=== PATIENT | male | born 1970 | race Two or more races ===

== ENCOUNTER 2022-12-29 13:41 | Outpatient (CLI) | payer BC, SELFPAY ==
--- NOTE | 2022-12-29 | ECHO_ITS ---
Patient Info Name: Margarito Moreno Age: 52 years : 1970 Gender: Male Ht: 67 in Wt: 178 lbs BSA: 1.97 m2 HR: 71 bpm BP: 158 / 99 mmHg Heart Rhythm: Sinus Rhythm Technical Quality: Good Exam Date: 12/29/2022 1:58 PM Exam Location: [facility] Pulmonary Patient Status: Outpatient Admit Date: 12/29/2022 Staff Ordering Physician: Louise, Rachel VELAZCO Temporary Administrative Assistant: Janee Bhakta RDCS Attending Provider: LouiseRachel NP Exam Type: CA echo doppler color flow Study Info Indications R00.2 - Palpitations I10 - Essential (primary) hypertension Complete two-dimensional, color flow and Doppler transthoracic echocardiogram is performed. Summary 1. Complete two-dimensional, color flow and Doppler transthoracic echocardiogram is performed. 2. Unremarkable 2D/Doppler echocardiogram. Left Ventricle Left ventricular chamber dimension is normal. Left ventricular systolic function is normal, estimated at 55-60%. The left ventricular diastolic function is normal. Right Ventricle Right ventricular chamber dimension is normal. Left Atria Left atrial chamber dimension is normal. Right Atria Right atrial chamber dimension is normal. Aortic Valve The aortic valve is normal. Pulmonic Valve The pulmonic valve is normal. Mitral Valve The mitral valve has normal leaflets. Tricuspid Valve The tricuspid valve leaflets are normal. Pericardium/Pleural The pericardium appears normal. Aorta The aortic root size at the sinus of Valsalva is normal. Left Ventricular Outflow Tract Name Value Normal LVOT 2D LVOT Diameter 2.0 cm LVOT Doppler LVOT Peak Gradient 7 mmHg LVOT Mean Gradient 3 mmHg LVOT VTI 24 cm LVOT VTI/AV VTI Ratio 0.8 LVOT Stroke Volume 77 ml LVOT CO 5.3 l/min LVOT CI 2.7 l/min/m2 Pulmonic Valve Name Value Normal RVOT Doppler RVOT Peak Gradient 2 mmHg PV Doppler PV Peak Gradient 5 mmHg Mitral Valve Name Value Normal MV Doppler MV Decel [place] 479 cm/s2 MV PHT 47 ms MV Area (PHT) 4.7 cm2 4.0-5.0 MV Diastolic Function MV E Peak Velocity 78 cm/s MV A Peak Velocity 82 cm/s MV E/A 0.9 MV Decel John
== END 2022-12-29 13:42 | disposition home or self-care (01) ==
PROVIDERS: Visit Provider Registered Nurse
DX: R00.2 Palpitations (principal); I10 Essential (primary) hypertension
CPT/HCPCS: 93306

== ENCOUNTER 2023-06-01 09:07 | Outpatient (CLI) | payer BC, SELFPAY ==
--- NOTE | 2023-06-01 09:12 | EST_ITS ---
Patient Info Name: Margarito Moreno Age: 53 years : 1970 Gender: Male Ht: 67 in Wt: 178 lbs BSA: 1.97 m2 HR: 71 bpm BP: 158 / 89 mmHg Heart Rhythm: Sinus Rhythm Exam Date: 06/01/2023 9:36 AM Exam Location: Echo Lab Patient Status: Outpatient Admit Date: 06/01/2023 Staff Ordering Physician: Markus Pulliam DO Attending Provider: Markus Pulliam DO Exercise Technologist: Krystyna Barton CT Exercise Physician: Markus Pulliam DO Exam Type: CA stress test treadmill Study Info Indications R07.89 - Other chest pain A treadmill exercise stress test was performed. Summary 1. 1. Negative Flavio exercise stress test for ischemic ST changes by ECG criteria. 2. 2. Good functional capacity, achieving 12 METs of workload. 3. 3. Baseline hypertension with hypertensive response to exercise. 4. 4. Appropriate HR response to exercise. 5. 5. Appropriate HR recovery at 1 minute post exercise. 6. 6. No imaging with stress testing. 7. 7. Patient informed of the above results. Protocol: Flavio Stress ECG Details Stage: REST Duration (min): 5 min : 7 sec Speed (mph): 0.0 Grade (%): 0 HR (bpm): 77 SBP (mmHg): 158 DBP (mmHg): 89 METS: --- Stage: REST Duration (min): 10 min : 12 sec Speed (mph): 0.0 Grade (%): 0 HR (bpm): 86 SBP (mmHg): 158 DBP (mmHg): 89 METS: --- Stage: STAGE 1 Duration (min): 1 min : 0 sec Speed (mph): 1.7 Grade (%): 10 HR (bpm): 108 SBP (mmHg): 158 DBP (mmHg): 89 METS: --- Stage: STAGE 1 Duration (min): 2 min : 0 sec Speed (mph): 1.7 Grade (%): 10 HR (bpm): 115 SBP (mmHg): 158 DBP (mmHg): 89 METS: --- Stage: STAGE 1 Duration (min): 3 min : 0 sec Speed (mph): 1.7 Grade (%): 10 HR (bpm): 115 SBP (mmHg): 188 DBP (mmHg): 93 METS: --- Stage: STAGE 2 Duration (min): 1 min : 0 sec Speed (mph): 2.5 Grade (%): 12 HR (bpm): 124 SBP (mmHg): 188 DBP (mmHg): 93 METS: --- Stage: STAGE 2 Duration (min): 2 min : 0 sec Speed (mph): 2.5 Grade (%): 12 HR (bpm): 127 SBP (mmHg): 191 DBP (mmHg): 97 METS: --- Stage: STAGE 2 Duration (min): 3 min : 0 sec Speed (mph): 2.5 Grade (%): 12 HR (bpm): 127 SBP (mmHg): 191 DBP (mmHg): 97 METS: --- Stage: STAGE 3 Duration (min): 1 min : 0 sec Speed (mph): 3.4 Grade (%): 14 HR (bpm): 132 SBP (mmHg): 207 DBP (mmHg): 96 METS: --- Stage: STAGE 3 Duration (min): 2 min : 0 sec Speed (mph): 3.4 Grade (%): 14 HR (bpm): 138 SBP (mmHg): 207 DBP (mmHg): 96 METS: --- Stage: STAGE 3 Duration (min): 3 min : 0 sec Speed (mph): 3.4 Grade (%): 14 HR (bpm): 139 SBP (mmHg): 208 DBP (mmHg): 100 METS: --- Stage: STAGE 4 Duration (min): 1 min : 0 sec Speed (mph): 4.2 Grade (%): 16 HR (bpm): 150 SBP (mmHg): 208 DBP (mmHg): 100 METS: --- Stage: STAGE 4 Duration (min): 1 min : 0 sec Speed (mph): 4.2 Grade (%): 16
== END 2023-06-01 09:08 | disposition home or self-care (01) ==
LOC: ANHCARD 09:08
PROVIDERS: PCP Registered Nurse; Visit Provider Internal Medicine Cardiovascular Disease
DX: R07.9 Chest pain, unspecified (principal)
CPT/HCPCS: 93017

== ENCOUNTER 2024-01-22 13:32 | Outpatient (CLI) | payer BC, SELFPAY ==
--- NOTE | 2024-01-25 16:17 | WPDHOLTEREM ---
Holter/Event Monitor Holter/Event Monitor Date of procedure: 01/22/24 Holter/Event Procedure: 48 Hr Holter Monitor Indications: Lightheadedness/syncope Conclusion: 1. 48 hour holter monitor on 01/22/24. 2. Underlying rhythm is sinus rhythm. HR range 47-106 bpm; average 68 bpm. HR at 47 bpm was at 05:44. 3. There are 25 premature supraventricular complexes and 1 supraventricular couplet. No supraventricular tachycardia. 4. No premature ventricular complexes. No ventricular tachycardia. 5. No sinoatrial or atrioventricular blocks. No significant pauses greater than 2 seconds. 6. No symptoms available for correlation.
== END 2024-01-22 13:33 | disposition home or self-care (01) ==
LOC: ANHCARD 13:33
PROVIDERS: PCP Registered Nurse; Visit Provider Registered Nurse
DX: R42 Dizziness and giddiness (principal)
CPT/HCPCS: 93225; 93226

== ENCOUNTER 2024-05-16 16:02 | Outpatient (CLI) | payer BC, SELFPAY ==
[2024-05-16 16:27] LABS: Basophils Percent Auto 0.5 % (0.2-1.2); Eosinophils Absolute Auto 0.1 K/mm3 (0-0.3); Eosinophils Percent Auto 2.3 % (0-4.4); Hematocrit 42.6 % (42.0-52.0); Immature Granulocyte Absolute 0.01 K/mm3 (0.00-0.031); Immature Granulocyte Percent A 0.2 % (0-0.5); Lymphocytes Percent Auto 42.8 % (18.3-44.2); Mean Corpuscular HGB Conc 32.9 g/dl (32-36); Mean Corpuscular Hemoglobin 25.9 pg (26-34); Mean Corpuscular Volume 78.7 fl (80-100); Mean Platelet Volume 9.9 fl (7.4-10.4); Monocytes Absolute Auto 0.5 K/mm3 (0.1-0.6); Monocytes Percent Auto 7.4 % (2.6-8.5); Neutrophils Absolute Auto 2.9 K/mm3 (1.3-6.7); Neutrophils Percent Auto 46.8 % (45.5-73.1); Platelet Count Result 312 k/mm3 (150-375); Red Blood Count 5.41 M/mm3 (4.6-6.20); Red Cell Distribution Width 13.6 % (11.5-14.5); White Blood Count 6.1 K/mm3 (4.5-10.0)
--- OUTSIDE RECORDS SUMMARY | 2024-05-16 16:37 | XMS_ITS | Encounter Summary ---
Author Organization [facility] Address [address] [place] [address]. [place], [place] [address] [place] [address] Care Team Providers Care Boiler Washer Name Role Phone LouiseRachel luong Martínez PENA Primary Care Provider [phone] Encounter Details Date Type Department Care Team (Late Contact Info) Description 03/06/2023 [employer] Message Enc [facility] Multispecialty Care - [facility] [address] [facility], [address] [place] [address] Maddie Fierro NP [address] [facility] [address] [place] [address] Appointment Social History Tobacco Use Types Packs/Day Years Used Date Smoking Tobacco: Never Smokeless Tobacco: Former Alcohol Use Standard Drinks/Week Comments Not Currently 0 (1 standard drink = 0.6 oz pur e alcohol) wine, seldom; socially AUDIT-C Answer Date Recorded Frequency of Alcohol Consumption 4 or more times a week 08/03/2018 Average Number of Drinks 1 or 2 019 Frequency of Binge Drinking Never 07/19 PHQ-2 Answer Date Recorded Patient Health Questionnaire-2 Score 0 06/04/2022 Sex and Gender Information Value Date Recorded Sex Assigned at Not on file 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 Gender Identity Not on file Sexual Orientation Not on file documented as of this encounter Plan of Treatment Upcoming Encounters Date Type Department Care Team (Late st Contact Info) Description 06/30/2024 1:00 PM CDT Office Visit [facility] Multispecialty Care - [facility] [address] [facility] [place] [address] Moiz Lyles MD [address] [facility] [address] [place] [address] documented as of this encounter Visit Diagnoses Not on filedocumented in this encounter Additional Health Concerns Assessment Noted Time PHQ-9 Depression Total Score: 11 022 11:33 AM CDT documented as of this encounter Care Teams Boiler Washer Relationship Specialty Start Date End Date Rachel Gil APNP [address] [place] [address] PCP - General NURSE PRACTITIONER 08/03/18 documented as of this encounter
--- OUTSIDE RECORDS SUMMARY | 2024-05-16 16:37 | XMS_ITS | Clinical Summary ---
Author Organization [facility] [address] Address [address] [place] [address] Care Team Providers Care Developer Designer Name Role Phone Rachel Gil Primary Care Provider + Allergies Active Allergy Reactions Criticality Noted Date Comments Lisinopril Angioedema High 04/11/2019 Medications amLODIPine (NORVASC) 10 mg tablet 02/18/2021 Active omeprazole (PriLOSEC) 40 mg capsule TAKE 1 CAPSULE(40 MG) BY MOUTH DAILY 04/23/2020 Active Active Problems No known active problems Surgical History Surgery Date Site/Laterality Comments KNEE SURGERY Medical History Medical History Date Comments Diverticulitis Elevated liver enzymes Hypertension GERD (gastroesophageal reflux disease) Chest tightness Sleep apnea Family History Medical History Relation Name Comments Hypertension Brother 1 Fainting Father Hypotension Father Breast cancer Paternal Grandmother Relation Name Status Comments Brother 1 Alive Brother 2 Alive Father Alive Mother Alive Paternal Grandmother Sister Alive Social History Tobacco Use Types Packs/Day Years Used Date Smoking Tobacco: Never Smokeless Tobacco: Current Chew Sex and Gender Information Value Date Recorded Sex Assigned at Not on file 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 Gender Identity Not on file Sexual Orientation Not on file Obstetrics History Last Filed Vital Signs Vital Sign Reading Time Taken Comments Blood Pressure 138/90 01/23/2022 3:19 PM CDT Pulse 68 01/23/2022 3:19 PM CDT Temperature - - Respiratory Rate - - Oxygen Saturation 96% 01/23/2022 3:19 PM CDT Inhaled Oxygen Concentration - - Weight 87.1 kg (192 lb) 01/23/2022 3:19 PM CDT Height 170.2 cm (5' 7 ) 01/23/2022 3:19 PM CDT Body Mass Index 30.07 01/23/2022 3:19 PM CDT Plan of Treatment Health Maintenance Due Date Last Done Comments Colon Cancer Screening-Colonoscopy 1970 Depression Screening 1970 Hepatitis C Screening 1970 Prostate Cancer Screening-PSA 1970 Hepatitis B Screening 02/02/1988 Regular Well Visit/Exam 18-64 02/02/1988 Zoster Vaccine (1 of 2) 02/02/2020 Covid-19 Vaccine (3 - season) 2023 07/10/2020, 06/12/2020 Influenza Vaccine (#1) 2023 9, 02/09/2015, 04/05/2014, Additional history exists DTaP/Tdap/Td Vaccine (3 - Td or Tdap) 01/24/2029 01/24/2019, 06/29/2008 Pneumococcal vaccine <65 Aged Out No longer eligible based on patient's age to complete this topic Insurance [employer] CHOICE OOS Care Teams Developer Designer Relationship Specialty Start Date End Date Rachel Gil PA [address] [place] [address] PCP - General Nurse Practitioner 11/13/20
--- OUTSIDE RECORDS SUMMARY | 2024-05-16 16:37 | XMS_ITS | Encounter Summary ---
Author Organization [facility] Address [address] [place] [address]. [place], [place] [address] [place] [address] Care Team Providers Care Charger Tester Name Role Phone Rachel Gil BECKY Primary Care Provider [phone] Encounter Details Date Type Department Care Team (Late Contact Info) Description 07/10/2023 Seeo Message Enc [address], [address] [place] [address] [facility] Provider Medication Social History Tobacco Use Types Packs/Day Years [...] Answer Date Recorded Patient Health Questionnaire-2 Score 2 06/25/2023 Sex and Gender Information Value Date Recorded Sex Assigned at Not on file 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 Gender Identity Not on file Sexual Orientation Not on file documented as of this encounter Plan of Treatment Upcoming Encounters Date Type Department Care Team (Late Contact Info) Description 06/30/2024 1:00 PM CDT Office Visit [address] [place] [address] Moiz Lyles MD [address] [place] [address] documented as of this encounter Visit Diagnoses Not on filedocumented in this encounter Additional Health Concerns Assessment Noted Time PHQ-9 Depression Total Score: 11 12/11/ 022 11:33 AM CDT documented as of this encounter Care Teams Charger Tester Relationship Specialty Start Date End Date Rachel Gil APNP [facility] [place] [address] PCP - General NURSE PRACTITIONER 08/03/18 documented as of this encounter
--- OUTSIDE RECORDS SUMMARY | 2024-05-16 16:37 | XMS_ITS | Referral Summary ---
Author Organization [facility] [address] Address [address] [place] [address] Care Team Providers Care Manager Student Services Name Role Phone Rachel Gil Primary Care Provider + Allergies Active Allergy Reactions Criticality Noted Date Comments Lisinopril Angioedema High 04/11/2019 Medications amLODIPine (NORVASC) 10 mg tablet 02/18/2021 Active omeprazole (PriLOSEC) 40 mg capsule TAKE 1 CAPSULE(40 MG) BY MOUTH DAILY 04/23/2020 Active Active Problems No known active problems Social History Tobacco Use Types Packs/Day Years Used Date Smoking Tobacco: Never Smokeless Tobacco: Current Chew Sex and Gender Information Value Date Recorded Sex Assigned at Not on file 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
--- OUTSIDE RECORDS SUMMARY | 2024-05-16 16:37 | XMS_ITS | CONTINUITY OF CARE DOCUMENT ---
Author Name albert price Address Unknown Organization [facility] Address [address] [facility] [facility] [address] [place] [address] Phone [phone] Care Team Providers Care Admin Prog Coord Name Role Phone Pepito STERLING, Eliceo Unavailable MARIANO STERLING, NATALIO Unavailable [phone] CELIO STERLING, ALEXEY Unavailable [phone] INSURANCE PROVIDERS Payer name Policy type / Coverage type Chester red libertarian ID [facility] [id number]
--- OUTSIDE RECORDS SUMMARY | 2024-05-16 16:37 | XMS_ITS | Continuity of Care Document ---
Author Organization [facility] Address [address] [place] [address] [address] [place] [address] Phone Care Team Providers Care Fiber Optics Engineer Name Role Phone Ariel Sherwood Unavailable Unavailable Advance Directives Directive Yes / No Effective Date File Name No Information Encounters Encounter Description Practice Location Reason(s) For Visit Diagnoses Date Provider Providers Copied on Encounter [facility], [address] [place] [address] [address], [place], [place], [id number], [place] tel:[phone] [facility] [place] No Information Mar-0 5-200 1 [address] Edward. [address] [facility] [place] , [address], [place], [address], [place]. tel:[phone] Family History Family Member Type Diagnosis Age At Onset No Information Payers Payer name Insurance type Covered democrat ID Authoriza tion(s) No Information Social History Type Description Quantity Date Captured Comments Sex Male Smoking Status No Information Chief Complaint And Reason For Visit No Information Reason For Referral Reason For Referral No Information History Of Present Illness Encounter Date Complaint History Of Prese nt Illness No Information Functional Status Date Functional Assessmen t No Information Instructions Date Instruction Additional Infor mation No Information Assessments Type Assessment Date No Information Patient Care Teams Name Effective Dates (start - stop) Status Members No Information
--- OUTSIDE RECORDS SUMMARY | 2024-05-16 16:37 | XMS_ITS | Clinical Summary ---
Author Organization [facility] Address [address] [place] [address]. [place], [place] [address] [place] [address] Care Team Providers Care Plasterer Maintenance Name Role Phone Rachel Gil Primary Care Provider Allergies Active Allergy Reactions Criticality Noted Date Comments Lisinopril Angioedema 04/11/2019 Medications amLODIPine (NORVASC) 10 MG tabletIndications :Essential hypertension Take 1 tablet (10 mg total) by mouth daily. 90 tablet 3 07/23/2023 Active BLOOD PRESSURE CUFF, DME,Indications:E ssential hypertension 1 Device by Does not apply route daily. 1 Device 07/23/2023 Active omeprazole (PRILOSEC) 20 MG capsuleIndication s:Gastroesophagea l reflux disease, unspecified whether esophagitis present TAKE 1 CAPSULE(20 MG) BY MOUTH DAILY 30 capsule 3 12/22/2023 Active Active Problems Problem Noted Date Diagnosed Date OXANA (obstructive sleep apnea) 12/16/2021 BMI 29.0-29.9,adult 11/02/2020 Essential hypertension 08/03/2018 Gastroesophageal reflux disease without esophagi tis 08/03/2018 Elevated liver enzymes 08/03/2018 Fatty liver 08/03/2018 Encounters Date Type Department Care Team Description 03/10/2024 8:40 AM RETAIL DEPARTMENT RESET Allied Health/[facility]urse [facility] [address] [address] Rachel Gil APNP Allied Health Visit 03/10/2024 Travel from Last 3 Months Immunizations Name Administration Dates Next Due Dtap 06/29/2008 Fluzone (IIV3, Trivalent, 0. 5 ML Prefilled Syringe) 03/10/2024 Fluzone 6 Months+ Quad (0.5 mL Prefilled Syringe) 01/14/2023,01/24/2019 Fluzone High Dose - >Age 65 (Prefilled Syringe) 01/30/2011 Influenza Adult (Generic) 01/24/2019,02/09/2015, 04/05/2014 MODERNA COVID-19 (12+) MRNA, LNP-S, PF, 100 MCG/ 0.5 ML DOSE 07/10/2020,06/12/2020 Pneumococcal (Prevnar 20) 03/10/2024 Shingrix 07/07/2023 Tdap (Historical Only-select from magnify glass) 01/24/2019 Family History Medical History Relation Comments Hypertension Brother Breast Cancer Maternal Grandmother Breast Cancer Paternal Grandmother Cancer Paternal Uncle prostate Relation Status Comments Brother Maternal Grandmother Paternal Grandmother Paternal Uncle Social History Tobacco Use Types Packs/Day Years [...] on file Legal Sex Male 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 RESET Gender Identity Not on file Sexual Orientation Not on file Last Filed Vital Signs Vital Sign Reading Time Taken Comments Blood Pressure 126/74 12/24/2023 8:58 AM CDT Pulse 80 12/24/2023 8:58 AM CDT Temperature 37 ??C (98.6 ??F) 12/24/2023 8:58 AM CDT Respiratory Rate 16 12/24/2023 8:58 AM CDT Oxygen Saturation 98% 12/24/2023 8:58 AM CDT Inhaled Oxygen Concentration - - Weight 84.7 kg (186 lb 12.8 oz) 12/24/2023 8:58 AM CDT Height 170.2 cm (5' 7 ) 12/24/2023 8:58 AM CDT Body Mass Index 29.26 12/24/2023 8:58 AM CDT Plan of Treatment Upcoming Encounters Date Type Department Care Team (Late st Contact Info) Description 06/30/2024 1:00 PM CDT [facility] - [facility] [address] [facility] [place] [address] Moiz Lyles MD [address] [facility] [address] [place] [address] Health Maintenance Due Date Last Done Comments Hepatitis C 02/02/1988 Hepatitis B Vaccines (1 of 3 - 19+ 3-dose series) 1989 Zoster Vaccines (2 of 2) 09/01/2023 07/07/2023 Annual Physical 11/07/2023 11/06/2022 COVID-19 Vaccine (3 - 2023- season) 2023 07/10/2020, 06/12/2020 PHQ-2 (Physician [place]) 04/20/2024 06/25/2023 PHQ-2 (Physician [place]) 06/24/2024 06/25/2023 DTaP, Tdap and Td Vaccines (3 - Td or Tdap) 01/24/2029 01/24/2019, 06/29/2008 Colorectal Cancer Screening Colonoscopy (10 Years) 09/20/2029 09/21/2019 Influenza Adult Completed 03/10/2024, 12/20, 01/24/2019, Additional history exists Pneumococcal Vaccine: Pediatrics (0 to 5 Years) and At-Risk Patients (6 to 64 Years) Aged Out 03/10/2024 No longer eligible based on patient's age to complete this topic Meningococcal B Vaccine Aged Out No l onger eligible based on patient's age to complete this topic Meningococcal Vaccine Aged Out No aleksandra tank eligible based on patient's age to complete this topic RSV Immunizations Under 20 Months Aged Out No longer eligible based on patient's age to complete this topic Procedures Procedure Name Priority Date/Time Associated Diagnosis Comments COLONOSCOPY/EGD GENERIC (SCAN ORDER) Routine 09/21/2019 10:09 AM CDT from Last 3 Months or Most Recently Relevant to Health Maintenance Results * COLONOSCOPY/EGD (09/21/2019 10:09 AM CDT) 09/21/2019 10:0 9 AM CDT us Documents Scanned SCANNING Edited Result - [facility] Last 3 Months or Most Recently Relevant to Health Maintenance Insurance [facility] Care Teams Plasterer Maintenance Relationship Specialty Start Date End Date Rachel Gil APNP [address] [place] [address] PCP - General NURSE PRACTITIONER 08/03/18
[2024-05-16 16:46] LABS: Alanine Aminotransferase 62 U/L (6-50); Albumin Level 4.6 g/dL (3.5-5.1); Alkaline Phosphatase 86 U/L (38-126); Anion Gap 14 mmol/L (4-12); Aspartate Amino Transferase 59 U/L (17-59); Bilirubin,Total 1.2 mg/dL (0.2-1.3); Blood Urea Nitrogen 8 mg/dL (9-20); Calcium 9.2 mg/dL (8.4-10.2); Carbon Dioxide 23 mmol/L (22-30); Chloride 104 mmol/L (98-107); Cholesterol 194 mg/dL (0-200); Estimated Glomerular Filt Rate > 60; Glucose 97 mg/dL (65-110); HDL Direct 47 mg/dL; Magnesium 1.9 mg/dL (1.6-2.3); Potassium 4.2 mmol/L (3.4-5.0); Sodium 141 mmol/L (137-145); Triglycerides 113 mg/dL (<150)
[2024-05-16 16:57] LABS: LDL Cholesterol Direct 98 mg/dL
== END 2024-05-16 16:03 | disposition home or self-care (01) ==
LOC: ANHLAB 16:03
PROVIDERS: PCP Registered Nurse; Visit Provider Internal Medicine Cardiovascular Disease
DX: I10 Essential (primary) hypertension (principal)
CPT/HCPCS: 36415; 80053; 80061; 83735; 84443; 85025

== ENCOUNTER 2024-06-24 10:13 | Outpatient (CLI) | payer BC, SELFPAY ==
--- OUTSIDE RECORDS SUMMARY | 2024-06-24 11:08 | XMS_ITS | Continuity of Care Document ---
Author Organization [facility] Address [address] [place] [address] [address] [place] [address] Phone Care Team Providers Care Gas Meter Installer Helper Name Role Phone Ariel Sherwood Unavailable Unavailable Advance Directives Directive Yes / No Effective Date File Name No Information Encounters Encounter Description Practice Location Reason(s) For Visit Diagnoses Date Provider Providers Copied on Encounter [facility], [address] [place] [address] [address], [place], [place], [id number], [place] tel:[phone] [facility] [place] No Information Mar-0 5-200 1 Shermansy Edward. [address] [facility] [place] , [address], [place], [address], [place]. tel:[phone] Family History Family Member Type Diagnosis Age At Onset No Information Payers Payer name Insurance type Covered constitution party ID Authoriza tion(s) No Information Social History [...]
--- OUTSIDE RECORDS SUMMARY | 2024-06-24 11:08 | XMS_ITS | Encounter Summary ---
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 Gender Identity Not on file Sexual Orientation Not on file documented as of this encounter Plan of Treatment Upcoming Encounters Date Type Department Care Team (Late st Contact Info) Description 06/30/2024 1:00 PM CDT Office Visit [facility] Mult[facility]ty Care - [facility] [address] [facility], [address] [place] [address] Moiz Lyles MD [address] [facility] [address] [place] [address] 07/25/2024 8:20 AM CDT Allied Health/Nurse Visit [facility] Family & Internal Medicine - [address] [address] Rachel Gil APNP [address] [place] [address] documented as of this encounter Visit Diagnoses Not on filedocumented in this encounter Additional Health Concerns Assessment Noted Time PHQ-9 Depression Total Score: 11 022 11:33 AM CDT documented as of this encounter Care Teams Information Systems Consultant Relationship Specialty Start Date End Date Rachel Gil APNP [address] [place] [address] PCP - General NURSE PRACTITIONER 08/03/18 documented as of this encounter
--- OUTSIDE RECORDS SUMMARY | 2024-06-24 11:08 | XMS_ITS | Encounter Summary ---
Author Organization [facility] Address [address] [place] [address] Care Team Providers Care Dress Cutter Name Role Phone Rachel Gil Primary Care Provider [phone] Reason for Referral * Medication Prior Authorization - Authorized Specialty Diagnoses / Procedures Referred By Contac t Referred To Contact Diagnoses Prediabetes Overweight with body mass index (BMI) of 27 to 27.9 in adult Essential hypertension Rachel Gil APNP [address] [place] [address] Phone: tel: fax: Referral ID Status Reason Start Date Expiration Date V isits Requested Visits Authorized [id number] Authorized 05/24/2024 02/18/2025 1 1 ACTORY MIXER Reason for Visit * Reason Comments Physical Encounter Details Date Type Department Care Team (Late st Contact Info) Description 06/23/2024 8:00 AM REFRACTORY MIXER Office Visit [facility] Family & Internal Medicine [address] [phone] Rachel Gil APNP [address] [place] [address] Physical Social History Tobacco Use Types Packs/Day Years Used Date Smoking Tobacco: Never Smokeless Tobacco: Former Tobacco Cessation:Counseling Given: No Alcohol Use Standard Drinks/Week Comments Not Currently [...] Sex Assigned at Male 06/23/2024 8:06 AM REFRACTORY MIXER Legal Sex Male 4:01 PM REFRACTORY MIXER Gender Identity Not on file Sexual Orientation Not on file documented as of this encounter Last Filed Vital Signs Vital Sign Reading Time Taken Comments Blood Pressure 122/82 06/23/2024 8:06 AM REFRACTORY MIXER Pulse 70 06/23/2024 8:06 AM REFRACTORY MIXER Temperature 36.9 C (98.4 F) 06/23/2024 8:06 AM REFRACTORY MIXER Respiratory Rate 16 06/23/2024 8:06 AM REFRACTORY MIXER Oxygen Saturation 98% 06/23/2024 8:06 AM REFRACTORY MIXER Inhaled Oxygen Concentration - - Weight 80.2 kg (176 lb 14.4 oz) 06/23/2024 8:06 AM REFRACTORY MIXER Height 170.2 cm (5' 7 ) 06/23/2024 8:06 AM REFRACTORY MIXER Body Mass Index 27.71 06/23/2024 8:06 AM REFRACTORY MIXER documented in this encounter Progress Notes * Kain Cuevas MA - 06/23/2024 8:00 AM CSTAddended by: KAIN CUEVAS on: 06/23/2024 08:57 AM Modules accepted: Orders ACTORY MIXER * Felicia Chung MA - 06/23/2024 8:00 AM CSTAddended by: FELICIA CHUNG on: 06/23/2024 09:17 AM Modules accepted: Orders ACTORY MIXER * EBCKY Coats - 06/23/2024 8:00 AM CST Images from the original note were not included. [facility] FAMILY AND INTERNAL MEDICINE OFFICE VISIT Reason for Visit: Physical History of Present Illness: The patient is being seen for a health maintenance evaluation. General Health: good Dental Health: Rare dental visits Vision Health: Last eye exam < 1 year ago Hearing Health: No hearing problems Immunizations Needed: Shingrix, Hep B Weight: Overweight There is no height or weight on file to calculate BMI. Physical Activity: Excersises regularly Prostate Cancer Screening:due fpr PSA, ordered today Testicular Cancer Screening: Monthly self testicular exam Colorectal Cancer Screening: done in 2020, due for 10 year follow up Metabolic Screening: Patient needs to be screened today. HCV Screening: Patient does meet criteria and needs testing today PHQ-9 Screening Score: 0 Smoking Status: Smoking status:NeverSmokeless tobacco:Former Chronic health conditions: GERD - stable. Tolerates omeprazole well. HTN - BP controlled. Tolerates meds well. OXANA - uses CPAP nightly, feels rested in AM. Tolerates well. Overweight - Bmi 27. He would like to lose weight. He has been trying to watch what he eats and exercise twice weekly. His work schedule permits more visits. is on a GLP-1 and he is pleased withher progress. Wonders if he would be a candidate for this. He states the cravings and food noise and great and he would like to turn this off if he could. He does have a diagnosis of prediabetes, his A1C last year was 5.8. ROS: Review of Systems Constitutional: Negative for chills, fever, malaise/fatigue and weight loss. HENT: Negative for congestion, ear pain, sinus pain and sore throat. Eyes: Negative for blurred vision and double vision. Respiratory: Negative for cough, shortness of breath and wheezing. Cardiovascular: Negative for chest pain, palpitations and leg swelling. Gastrointestinal: Negative for abdominal pain, constipation, diarrhea, heartburn, nausea and vomiting. Genitourinary: Negative for dysuria, frequency and urgency. Musculoskeletal: Negative for back pain, falls, joint pain and myalgias. Skin: Negative for itching and rash. Neurological: Negative for dizziness, speech change, loss of consciousness, weakness and headaches. Psychiatric/Behavioral: Negative for depression and suicidal ideas. Medications: Current Outpatient Medications: amLODIPine (NORVASC) 10 MG tablet, Take 1 tablet (10 mg total) by mouth daily., Disp: 90 tablet, Rfl: 3 ASHWAGANDHA OR, , Disp: , Rfl: BLOOD PRESSURE CUFF, DME,, 1 Device by Does not apply route daily., Disp: 1 Device, Rfl: 0 Moringa Oleifera (MORINGA OR), , Disp: , Rfl: omeprazole (PRILOSEC) 20 MG capsule, TAKE 1 CAPSULE(20 MG) BY MOUTH DAILY, Disp: 30 capsule, Rfl: 3 tirzepatide (ZEPBOUND) 2.5 MG/0.5ML injection, Inject 2.5 mg into the skin once a week. Indications: Weight Loss, Disp: 2 mL, Rfl: 5 Allergies: Review of patient's allergies indicates: Allergen Reactions Lisinopril Angioedema Medical History: Past Medical History: Diagnosis Date BMI 27.0-27.9,adult 11/02/2020 Diverticulitis Elevated liver enzymes 08/03/2018 Fatty liver 08/03/2018 Gastroesophageal reflux disease without esophagitis 08/03/2018 Hypertension OXANA (obstructive sleep apnea) 12/16/2021 Surgical History: Past Surgical History: Procedure Laterality Date COLONOSCOPY FLX DX W/COLLJ SPEC WHEN PFRMD ENDOSCOPY (SCAN ORDER) HC DRAPE ARTHOSCOPY KNEE Social History: Social History Socioeconomic History Marital status: Tobacco Use Smoking status: Never Smokeless tobacco: Former Vaping Use Vaping status: Never Used Substance and Sexual Activity Alcohol use: Not Currently Comment: wine, seldom; socially Drug use: No Sexual activity: Yes Partners: Female Family History: Family History Problem Relation Name Age of Onset Prostate Cancer Father Hypertension Brother Cancer Paternal Uncle prostate Breast Cancer Maternal Grandmother Breast Cancer Paternal Grandmother PE: Physical Exam Vitals and nursing note reviewed. HENT: Head: Atraumatic. Right Ear: Tympanic membrane normal. Left Ear: Tympanic membrane normal. Mouth/Throat: Mouth: Mucous membranes are moist. Pharynx: No posterior oropharyngeal erythema. Eyes: General: No scleral icterus. Extraocular Movements: Extraocular movements intact. Conjunctiva/sclera: Conjunctivae normal. Pupils: Pupils are equal, round, and reactive to light. Neck: Thyroid: No thyromegaly. Vascular: No JVD. Trachea: No tracheal deviation. Cardiovascular: Rate and Rhythm: Normal rate and regular rhythm. Heart sounds: No murmur heard. No friction rub. No gallop. Pulmonary: Effort: Pulmonary effort is normal. No respiratory distress. Breath sounds: Normal breath sounds. No wheezing or rales. Chest: Chest wall: No tenderness. Abdominal: General: Bowel sounds are normal. There is no distension. Palpations: Abdomen is soft. There is no mass. Tenderness: There is no abdominal tenderness. There is no guarding or rebound. Musculoskeletal: General: No tenderness. Normal range of motion. Cervical back: Normal range of motion and neck supple. Lymphadenopathy: Cervical: No cervical adenopathy. Skin: General: Skin is warm and dry. Coloration: Skin is not pale. Findings: No erythema or rash. Neurological: Mental Status: He is alert and oriented to person, place, and time. Gait: Gait is intact. Deep Tendon Reflexes: Reflexes are normal and symmetric. Psychiatric: Mood and Affect: Mood and affect normal. Filed Vitals: 06/23/24 0806 BP: 122/82 Pulse: 70 Resp: 16 Temp: 98.4 ??F (36.9 ??C) TempSrc: Skin SpO2: 98% Weight: 80.2 kg (176 lb 14.4 oz) Height: 1.702 m (5' 7 ) Labs: Labs Reviewed Diagnoses/Impression: 1. Routine medical exam 2. Prediabetes HEMOGLOBIN, GLYCOSYLATED COLLECT.CAPILLARY (FNGR,HEEL,EAR) tirzepatide (ZEPBOUND) 2.5 MG/0.5ML injection 3. Prostate cancer screening PROSTATE SPECIFIC ANTIGEN,SCREENING 4. Family history of prostate cancer in father PROSTATE SPECIFIC ANTIGEN,SCREENING 5. Overweight with body mass index (BMI) of 27 to 27.9 in adult tirzepatide (ZEPBOUND) 2.5 MG/0.5MLinjection 6. OXANA (obstructive sleep apnea) Chronic 7. Gastroesophageal reflux disease without esophagitis Chronic 8. Need for hepatitis C screening test HEPATITIS C AB ([facility] ONLY) 9. Essential hypertension Chronic tirzepatide (ZEPBOUND) 2.5 MG/0.5ML injection Recommendations and Plan: 1. Prediabetes - HEMOGLOBIN, GLYCOSYLATED - COLLECT.CAPILLARY (FNGR,HEEL,EAR) - tirzepatide (ZEPBOUND) 2.5 MG/0.5ML injection; Inject 2.5 mg into the skin once a week. Indications: Weight Loss Dispense: 2 mL; Refill: 5 2. Prostate cancer screening - PROSTATE SPECIFIC ANTIGEN,SCREENING; Future 3. Family history of prostate cancer in father - PROSTATE SPECIFIC ANTIGEN,SCREENING; Future 4. Routine medical exam Patient doing well. Reviewed with the patient BMI, blood pressure, diet, exercise, and encouraged healthy lifestyle choices. Screened for substance use, risk factors for STIs, diet and exercise habits, and symptoms of depression. Emphasized normal blood pressure of < 140/90 and lipid and diabetes screening for all men > 35 or for men 20-34 with risk factors. Recommended [place] screening for AAAfor all men 65-75 who have ever smoked. Recommended prostate screening. Colon screening starting at45. Recommended preventive immunizations according to age. 5. Overweight with body mass index (BMI) of 27 to 27.9 in adult - tirzepatide (ZEPBOUND) 2.5 MG/0.5ML injection; Inject 2.5 mg into the skin once a week. Indications: Weight Loss Dispense: 2 mL; Refill: 5 TLC and dietary changes conducive to weight loss discussed with pt 6. OXANA (obstructive sleep apnea) Stable. Cont use of CPAP 7. Gastroesophageal reflux disease without esophagitis Stable. Cont meds 8. Need for hepatitis C screening test - HEPATITIS C AB ([facility] ONLY); Future Shared decision making 9. Essential hypertension - tirzepatide (ZEPBOUND) 2.5 MG/0.5ML injection; Inject 2.5 mg into the skin once a week. Indications: Weight Loss Dispense: 2 mL; Refill: 5 Stable. Cont meds Orders Placed This Encounter COLLECT.CAPILLARY (FNGR,HEEL,EAR) HEMOGLOBIN, GLYCOSYLATED PROSTATE SPECIFIC ANTIGEN,SCREENING HEPATITIS C AB ([facility] ONLY) Moringa Oleifera (MORINGA OR) ASHWAGANDHA OR tirzepatide (ZEPBOUND) 2.5 MG/0.5ML injection Cannot display discharge medications since this is not an admission. PCP: BECKY Coats 06/23/2024 ACTORY MIXER documented in this encounter Plan of Treatment Upcoming Encounters Date Type Department Care Team (Late st Contact Info) Description 06/30/2024 1:00 PM CDT Office Visit [facility] Multispecialty Care - [address] [place] [address] Moiz Lyles MD [address] [facility] [address] [place] [address] 07/25/2024 8:20 AM CDT Allied Health/Nurse Visit [facility] Family & Internal Medicine - [address] [phone] Rachel Gil APNP [address] [place] [address] Scheduled Orders Name Type Priority Associated Diagnoses Orde r Schedule HEPATITIS C AB ([facility] ONLY) Lab Routine Need for hepatitis C screening test Expected: 06/23/2024, Expires: 06/23/2025 PROSTATE SPECIFIC ANTIGEN,SCREENING Lab Routine Prostate cancer screening Family history of prostate cancer in father Expected: 06/23/2024, Expires: 06/23/2025 documented as of this encounter Procedures Procedure Name Priority Date/Time Associated Diagnosis Comments COLLECT.CAPILLARY (FNGR,HEEL,EAR) Routine 06/23/2024 7:53 AM REFRACTORY MIXER Prediabetes HEMOGLOBIN, GLYCOSYLATED Routine 06/23/2024 Prediabetes documented in this encounter Results * HEMOGLOBIN, GLYCOSYLATED (06/23/2024) HGB A1C 5.6 % [facility] 06/23/2024 us Rachel [facility] Final Resul t [address] [address], documented in this encounter Visit Diagnoses Diagnosis Routine medical exam- Primary Routine general medical examination at a health care facility Prediabetes Other abnormal glucose Prostate cancer screening Special screening for malignant neoplasm of prostate Family history of prostate cancer in father Overweight with body mass index (BMI) of 27 to 27.9 in adult OXANA (obstructive sleep apnea) Obstructive sleep apnea (adult) (pediatric) Gastroesophageal reflux disease without esophagitis Esophageal reflux Need for hepatitis C screening test Special screening examination for other specified viral diseases Essential hypertension Unspecified essential hypertension Need for prophylactic vaccination against hepatitis B virus Need for prophylactic vaccination and inoculation against viral hepatitis documented in this encounter Additional Health Concerns Assessment Noted Time PHQ-9 Depression Total Score: 11 022 11:33 AM CDT documented as of this encounter Care Teams Dress Cutter Relationship Specialty Start Date End Date Rachel Gil APNP [address] [place] [address] PCP - General NURSE PRACTITIONER 08/03/18 documented as of this encounter
--- OUTSIDE RECORDS SUMMARY | 2024-06-24 11:08 | XMS_ITS | Encounter Summary ---
Author Organization [facility] Address [address] [place] [address] Care Team Providers Care Military Technology Specialist Name Role Phone Rachel Gil Primary Care Provider [phone] Reason for Visit * Reason Onset Date Comments Prior Authorization 06/23/2024 Zepbound 2.5 mg Encounter Details Date Type Department Care Team (Late st Contact Info) Description 06/23/2024 Telephone [facility] Family & Internal Medicine [facility] [address] [place] [address] Rachel Gil APNP [address] [place] [address] Prior Authorization (Zepbound 2.5mg ) Social History Tobacco Use Types Packs/Day Years [...] Sex Assigned at Male 06/23/2024 8:06 AM COMPUTER TRAINER Legal Sex Male 4:01 PM COMPUTER TRAINER Gender Identity Not on file Sexual Orientation Not on file documented as of this encounter Progress Notes * Marcelle Tobar MA - 06/23/2024 12:57 PM CST Images from the original note were not included. BENITA approved via [employer] for Zepbound 2.5mg, lamberto brown Approved Prior authorization approved Payer: [employer] [phone] Note from payer: CaseId:[id number];Status:Approved;Review Type:Prior Auth;Coverage Start Date:05/24/2024;Coverage End Date:02/18/2025; Approval Details Authorized from May 24, 2024 to February 18, 2025 Electronic appeal: Not supported View History UTER TRAINER documented in this encounter Plan of Treatment Upcoming Encounters Date Type Department Care Team (Late st Contact Info) Description 06/30/2024 1:00 PM CDT Office Visit [facility] Multispecialty Care - [facility] [address] [facility] [place] [address] Moiz Lyles MD [address] [facility] [address] [place] [address] 07/25/2024 8:20 AM CDT Allied Health/Nurse Visit [facility] Family & Internal Medicine - [address] [phone] Rachel Gil APNP [address] [place] [address] documented as of this encounter Visit Diagnoses Not on filedocumented in this encounter Additional Health Concerns Assessment Noted Time PHQ-9 Depression Total Score: 11 12/11/ 022 11:33 AM CDT documented as of this encounter Care Teams Military Technology Specialist Relationship Specialty Start Date End Date Rachel Gil APNP [address] [place] [address] PCP - General NURSE PRACTITIONER 08/03/18 documented as of this encounter
--- OUTSIDE RECORDS SUMMARY | 2024-06-24 11:09 | XMS_ITS | Encounter Summary ---
Author Organization [facility] Address [address] [place] [address] Care Team Providers Care Assistant Press Operator Name Role Phone Rachel Gil Primary Care Provider [phone] Encounter Details Date Type Department Care Team (Late st Contact Info) Description 03/06/2023 [employer] Message Enc [facility] Multispecialty Care - [facility] [address] [facility], [address] [place] [address] Maddie Fierro NP 3 [facility] [address] [place] [address] Appointment Social History Tobacco Use Types Packs/Day [...] Sex Assigned at Male 06/23/2024 8:06 AM SIGNALS COLLECTOR/ANALYST Legal Sex Male 4:01 PM SIGNALS COLLECTOR/ANALYST Gender Identity Not on file Sexual Orientation Not on file documented as of this encounter Plan of Treatment Upcoming Encounters Date Type Department Care Team (Late st Contact Info) Description 06/30/2024 1:00 PM CDT Office Visit [facility] Multispecialty Care - [facility] [address] [facility] [address] [place] [address] Moiz Lyles MD [address] [facility] [address] [place] [address] 07/25/2024 8:20 AM CDT Allied Health/Nurse Visit [facility] Family & Internal Medicine - [facility] [address] [place] [address] Rachel Gil APNP [address] [place] [address] documented as of this encounter Visit Diagnoses Not on filedocumented in this encounter Additional Health Concerns Assessment Noted Time PHQ-9 Depression Total Score: 11 12/11/ 022 11:33 AM CDT documented as of this encounter Care Teams Assistant Press Operator Relationship Specialty Start Date End Date Rachel Gil APNP [address] [place] [address] PCP - General NURSE PRACTITIONER 08/03/18 documented as of this encounter
--- OUTSIDE RECORDS SUMMARY | 2024-06-24 11:09 | XMS_ITS | Encounter Summary ---
Author Organization [facility] Address [address] [place] [address] Care Team Providers Care Senior Technical Architect Name Role Phone Rachel Gil Martínez PENA Primary Care Provider [phone] Encounter Details Date Type Department Care Team (Late Contact Info) Description 07/10/2023 [employer] Message Enc [address], [address] [place] [phone] Gwen, [facility] Provider Medication Social History Tobacco Use Types [...] Sex Assigned at Male 06/23/2024 8:06 AM SCHOOL PSYCHOLOGIST ASSISTANT Legal Sex Male 4:01 PM SCHOOL PSYCHOLOGIST ASSISTANT Gender Identity Not on file Sexual Orientation Not on file documented as of this encounter Plan of Treatment Upcoming Encounters Date Type Department Care Team (Late Contact Info) Description 06/30/2024 1:00 PM CDT Office Visit [facility] - [address], [address] [place] [phone] Moiz Lyles MD [address] [place] [address] 07/25/2024 8:20 AM CDT Allied Health/Nurse Visit [facility] Family & Internal Medicine - [address] [phone] Rachel Gil APNP [address] [place] [address] documented as of this encounter Visit Diagnoses Not on filedocumented in this encounter Additional Health Concerns Assessment Noted Time PHQ-9 Depression Total Score: 11 12/11/ 022 11:33 AM CDT documented as of this encounter Care Teams Senior Technical Architect Relationship Specialty Start Date End Date Rachel Gil APNP [address] [place] [address] PCP - General NURSE PRACTITIONER 08/03/18 documented as of this encounter
--- OUTSIDE RECORDS SUMMARY | 2024-06-24 11:09 | XMS_ITS | Clinical Summary ---
Author Organization [facility] Address [facility] [place] [address] Care Team Providers Care Supervisor Grading Name Role Phone Rachel Gil Primary Care Provider [phone] Allergies Active Allergy Reactions Criticality Noted Date [...] MOUTH DAILY 30 capsule 3 12/22/2023 Active Moringa Oleifera (MORINGA OR) Active ASHWAGANDHA OR Activ e tirzepatide (ZEPBOUND) 2.5 MG/0.5ML injectionIndicati ons:Weight Loss Inject 2.5 mg into the skin once a week. Indications : Weight Loss 2 mL 5 06/23/2024 Active Active Problems Problem Noted Date Diagnosed Date OXANA (obstructive sleep apnea) 12/16/2021 Essential hypertension 08/03/2018 Gastroesophageal reflux disease without esophagi tis 08/03/2018 Elevated liver enzymes 08/03/2018 Fatty liver 08/03/2018 Resolved Problems Problem Noted Date Diagnosed Date Resolved Date BMI 29.0-29.9,adult 11/02/2020 06/24/19 25 Encounters Date Type Department Care Team Description 06/23/2024 8:00 AM DOCKETING SPECIALIST Office [facility] Internal [address] [phone] Rachel Gil APNP Physical 06/23/[address] [phone] Rachel Gil APNP Prior Authorization (Zepbound 2.5mg ) 06/23/2024 Travel 06/16/2024 MyChart Message Enc [address] [phone] Rachel Gil APNP Zepbound 06/16/[address] [phone] Rachel Gil APNP Lab Order 05/18/2024 Scan HEALTH INFO SRVCS Scanned, [facility] 05/16/2024 Scan HEALTH INFO SRVCS Scanned, [facility] Lab (SCAN) from Last 3 Months Immunizations Name Administration Dates Next Due Dtap 06/29/2008 Fluzone (IIV3, Trivalent, 0. 5 ML Prefilled Syringe) 03/10/2024 Fluzone 6 Months+ Quad (0.5 mL Prefilled Syringe) 01/14/2023,01/24/2019 Fluzone High Dose - >Age 65 (Prefilled Syringe) 01/30/2011 Hepatitis B(Engerix B Adult) 06/23/2024 Influenza Adult (Generic) 01/24/2019,02/09/2015, 04/05/2014 MODERNA COVID-19 (12+) MRNA, LNP-S, PF, 100 MCG/ 0.5 ML DOSE 07/10/2020,06/12/2020 Pneumococcal (Prevnar 20) 03/10/2024 Shingrix 03/15/2024,07/07/2023 Tdap (Historical Only-select from magnify glass) 01/24/2019 Family History Medical History Relation Comments Hypertension Brother Prostate Cancer Father Breast Cancer Maternal Grandmother Breast Cancer Paternal Grandmother Cancer Paternal Uncle prostate Relation Status Comments Brother Father Maternal Grandmother Paternal Grandmother Paternal Uncle Social [...] Sex Assigned at Male 06/23/2024 8:06 AM DOCKETING SPECIALIST Legal Sex Male 4:01 PM DOCKETING SPECIALIST Gender Identity Not on file Sexual Orientation Not on file Last Filed Vital Signs Vital Sign Reading Time Taken Comments Blood Pressure 122/82 06/23/2024 8:06 AM DOCKETING SPECIALIST Pulse 70 06/23/2024 8:06 AM DOCKETING SPECIALIST Temperature 36.9 C (98.4 F) 06/23/2024 8:06 AM DOCKETING SPECIALIST Respiratory Rate 16 06/23/2024 8:06 AM DOCKETING SPECIALIST Oxygen Saturation 98% 06/23/2024 8:06 AM DOCKETING SPECIALIST Inhaled Oxygen Concentration - - Weight 80.2 kg (176 lb 14.4 oz) 06/23/2024 8:06 AM DOCKETING SPECIALIST Height 170.2 cm (5' 7 ) 06/23/2024 8:06 AM DOCKETING SPECIALIST Body Mass Index 27.71 06/23/2024 8:06 AM DOCKETING SPECIALIST Plan of Treatment Upcoming Encounters Date Type Department Care Team (Late st Contact Info) Description 06/30/2024 1:00 PM CDT Office Visit [facility] Multispecialty Care - [facility] [address] [facility] [place] [phone] Moiz Lyles MD [address] [facility] [address] [place] [address] 07/25/2024 8:20 AM CDT Allied Health/Nurse Visit [facility] Family & Internal Medicine - [address] [phone] Rachel Gil, BECKY [address] [place] [address] Health Maintenance Due Date Last Done Comments Hepatitis C 02/02/1988 Hepatitis B Vaccines (2 of 3 - 19+ 3-dose series) 07/21/2024 06/23/2024 Annual Physical 06/23/2025 06/23/2024, 11/06/2022 COVID-19 Vaccine (3 - season) 2025 07/10/2020, 06/12/2020 Postponed from 12/20/2023 (Patient Refused) DTaP, Tdap and Td Vaccines (3 - Td or Tdap) 01/24/2029 01/24/2019, 06/29/2008 Colorectal Cancer Screening Colonoscopy (10 Years) 09/20/2029 09/21/2019 Influenza Adult Completed 03/10/2024, 12/20, 01/24/2019, Additional history exists Pneumococcal Vaccine: Pediatrics (0 to 5 Years) and At-Risk Patients (6 to 64 Years) Aged Out 03/10/2024 No longer eligible based on patient's age to complete this topic Zoster Vaccines Completed 03/15/2024, 07/07/2023 PHQ-2 (Physician [place]arrow) Completed 06/23/2024 Meningococcal B Vaccine Aged Out No l [...] Comments COLLECT.CAPILLARY (FNGR,HEEL,EAR) Routine 06/23/2024 7:53 AM DOCKETING SPECIALIST Prediabetes HEMOGLOBIN, GLYCOSYLATED Routine 06/23/2024 Prediabetes OUTSIDE LAB (SCAN ORDER) 05/16/2024 OUTSIDE LAB (SCAN ORDER) 05/16/2024 OUTSIDE LAB (SCAN ORDER) 05/16/2024 COLONOSCOPY/EGD GENERIC (SCAN ORDER) Routine 09/21/2019 10:09 AM CDT from Last 3 Months or Most Recently Relevant to Health Maintenance Results * HEMOGLOBIN, GLYCOSYLATED (06/23/2024) HGB A1C 5.6 % [facility] 06/23/2024 us [facility] Final Resul t [facility] [address] [place] [address], [place] * OUTSIDE LAB (SCAN ORDER) (05/16/2024) Only the most recent of3 resultswithin the time period is included. 05/16/2024 us [facility] Scanned SCANNING Final Resu lt * COLONOSCOPY/EGD (09/21/2019 10:09 AM CDT) 09/21/2019 10:0 9 AM CDT us Documents Scanned SCANNING Edited Result - Final [facility] ONBASE from Last 3 Months or Most Recently Relevant to Health Maintenance Insurance BLUE CROSS BLUE SHIELD BLUE CROSS BLUE SHIELD Care Teams Supervisor Grading Relationship Specialty Start Date End Date Rachel Gil APNP [address] [place], [place] [id number] PCP - General NURSE PRACTITIONER 08/03/18
--- OUTSIDE RECORDS SUMMARY | 2024-06-24 11:09 | XMS_ITS | Referral Summary ---
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
--- OUTSIDE RECORDS SUMMARY | 2024-06-24 11:09 | XMS_ITS | Clinical Summary ---
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
--- OUTSIDE RECORDS SUMMARY | 2024-06-24 11:09 | XMS_ITS | Encounter Summary ---
Author Organization [facility] Address [address] [place] [address] Care Team Providers Care Web Application Tester Name Role Phone Rachel Gil Primary Care Provider [phone] Reason for Visit * Reason Onset Date Comments Medication Request 06/16/2024 Encounter Details Date Type Department Care Team (Late st Contact Info) Description 06/16/2024 Zookalt Message Enc [facility] Medical Group Family & Internal Medicine [facility] [address] [place] [address] Rachel Gil APNP [address], [place] [id number] Zepbound Social History Tobacco Use Types Packs/Day Years [...] Sex Assigned at Male 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 Will reach out to PCP to see what labs, if any, he is due for. It appears pt just had CMP, CBC, lipid panel and TSH w/reflex done at [facility] for Dr. Pulliam on 05/16/24. ERCIAL DRIVER * Maddie Mosher MA - 06/17/2024 8:08 AM CST Pt's last OV was 12/24/23. Pt's A1c was checked at that visit, was 5.8. ERCIAL DRIVER documented in this encounter Plan of Treatment Upcoming Encounters Date Type Department Care Team (Late st Contact Info) Description 06/30/2024 1:00 PM CDT Office Visit [facility] - [facility] [address] [facility] [place] [address] Moiz Lyles MD [address] [facility] [address] [place] [address] 07/25/2024 8:20 AM CDT Allied Health/Nurse Visit [facility] Medical Group Family & Internal Medicine - [place] [address] [place] [address] Rachel Gil APNP [address] [place] [id number] documented as of this encounter Visit Diagnoses Not on filedocumented in this encounter Additional Health Concerns Assessment Noted Time PHQ-9 Depression Total Score: 11 12/11/ 022 11:33 AM CDT documented as of this encounter Care Teams Web Application Tester Relationship Specialty Start Date End Date Rachel Gil APNP [address] [place] [address] PCP - General NURSE PRACTITIONER 08/03/18 documented as of this encounter
--- OUTSIDE RECORDS SUMMARY | 2024-06-24 11:09 | XMS_ITS | CONTINUITY OF CARE DOCUMENT ---
Author Name albert price Address Unknown Organization [facility] Address [address] [facility] [address] [place] [address] Phone [phone] Care Team Providers Care Hose Operator Name Role Phone Pepito STERLING, Eliceo Unavailable MARIANO STERLING, NATALIO Unavailable CELIO STERLING, ALEXEY Unavailable INSURANCE PROVIDERS Payer name Policy type / Coverage type [place] red libertarian ID [facility] [id number]
[2024-06-24 11:30] LABS: Prostate Specific Antigen 2.3 ng/mL (< OR = 4.0)
[2024-06-24 12:03] LABS: Hepatitis C Virus Antibody Negative (Negative)
== END 2024-06-24 10:14 | disposition home or self-care (01) ==
LOC: ANHLAB 10:18
PROVIDERS: PCP Registered Nurse; Visit Provider Registered Nurse
DX: Z11.59 Encounter for screening for other viral diseases (principal); Z12.5 Encounter for screening for malignant neoplasm of prostate; Z80.42 Family history of malignant neoplasm of prostate
CPT/HCPCS: 36415; 84153; 86803; G0103